=== PATIENT | female | born 1960 | race African-American/Black ===

== ENCOUNTER 2016-07-29 14:38 | Inpatient (IN) | payer MEDICARE, OTHER ==
--- NOTE | ~2016-07-29 | ECH ---
Echocardiogram [address] [place]. [address] NAME: NANDO WHEELER : 64 STATUS : ADM IN [facility]#: [id number] AGE: 56 ADM/REG DATE : 07/29/16 MR#: [id number] REPORT SERV DATE: 08/01/16 DICTATED BY: ANNETTE ABRAHAM JR. DATE: 07/30/16 REPORT STATUS : Draft TRANSCRIBED BY: AVNI DATE: 07/30/16 REFERRING PHYSICIANS: Tatiana Zamora M.D. and Arminda Webb D.O. TECH: Lloyd Rosales is the RDCS. INDICATIONS: Ischemic cardiomyopathy, chest pain, NSTEMI. 2-D INTERPRETATION: M-mode and 2-dimensional echocardiography were performed. The left atrium was dilated at 4.4 cm compared to an aortic root diameter of 2.5 cm. The left ventricle was dilated at 5.8 cm in end-diastole and 4.7 cm in end-systole. Overall, there appeared to be moderate reduction of left ventricular systolic function with moderate anterolateral and inferior posterolateral hypokinesis with ejection fraction of 35%. DEFINITY contrast imaging agent was utilized to enhance endocardial borders, aortic valve was trileaflet and sclerotic. The mitral valve appeared to be mildly sclerotic with mitral annular calcification. Remaining cardiac valves appeared to be structurally normal. No obvious pericardial or pleural effusion could be seen. No intracardiac mass could be identified. DOPPLER/COLOR FLOW: Conventional and Doppler color flow imaging were performed. Mitral inflow patterns were acceptable for the patient's age. There was mild mitral insufficiency. There was tricuspid insufficiency. Peak right ventricular systolic pressure of 60 mmHg. Peak gradient across the aortic valve measured 15 mmHg, mean gradient 6 mmHg yielding an aortic valve area of 1.3 cm square with continuity equation. There was no aortic insufficiency. CONCLUSION: MODERATE REDUCTION OF LEFT VENTRICULAR SYSTOLIC FUNCTION WITH REGIONAL WALL MOTION ABNORMALITY. MITRAL VALVE SCLEROSIS WITH MITRAL ANNULAR CALCIFICATION AND MILD MITRAL INSUFFICIENCY. AORTIC VALVE SCLEROSIS WITH MILD STENOSIS. TRICUSPID INSUFFICIENCY WITH AT LEAST MODERATE PULMONARY HYPERTENSION. /AVNI Annette Abraham Jr., M.D. / [id number] CC: Grant Rogers M.D.
--- NOTE | ~2016-07-29 | HP ---
History And Physical [address] [place]. [address] NAME: NANDO WHEELER : 64 STATUS : ADM IN [facility]#: [id number] AGE: 55 ADM/REG DATE : 07/29/16 MR#: [id number] REPORT SERV DATE: 07/29/16 DICTATED BY: ROMEO ESPINOZA DATE: 07/29/16 REPORT STATUS : Draft TRANSCRIBED BY: MODL DATE: 07/29/16 DATE OF ADMISSION: 07/29/2016 HISTORY AND PHYSICAL: Ms Wheeler is a 55-year-old black female, patient of Dr. Tatiana Zamora, on home peritoneal dialysis, longstanding history of diabetes, and hypertension, recently diagnosed with calciphylaxis, [facility] by Dr. Raul Silva, admitted now with with two- to three-week history of weakness, drop in hematocrit, dark stools, and today, at work, just could not stay at work. She was too weak and was sent to the emergency room where she was found have a hemoglobin of 7.1. Heart rate was in the 30s with potassium above 6. She recently was switched from Coumadin to Eliquis because of her calciphylaxis lesions. Dr. Webb agreed to this after discussing with Dr. Zamora. She has been on Coumadin for atrial fib for some time. Back in September of last year, had two stents placed at [facility] for ischemic cardiomyopathy. Her diabetes is quite extensive with end-stage renal disease, Charcot joints, from peripheral neuropathy with amputated right toe, chronic hypertension although currently she is hypotensive bradycardic and anemic. ALLERGIES: SHE IS ALLERGIC TO SULFA. MEDICATIONS: Her home medications otherwise are listed as hydralazine, aspirin, calcitriol, Chantix, Coreg, doxycycline, Eliquis, Fosrenol, Kenalog cream, Lasix, Lipitor, LiquaCel, nitroglycerin, NovoLog insulin, Plavix, potassium, prednisone, eye drops, Prilosec, Pro- Stat, and Zetia. SOCIAL HISTORY: Lives alone. 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 Rare alcohol intake. No drugs. FAMILY HISTORY: Positive for hypertension, diabetes, but no chronic kidney disease. REVIEW OF SYSTEMS: Weak for the last several weeks and [facility] this to [facility]. They were to get a stool sample because she stated that her stools were getting darker. Hemoglobin dropped from 10 to 8.8, but she was still able to get up and about take care of herself, go to work every day until today when she was profoundly weak, hemoglobins had dropped further. She was quite bradycardic. PHYSICAL EXAMINATION: VITAL SIGNS: Initially, her heart rate is in the 30s, went up to the 50s, blood pressure was in the 89/40 range initially. Currently, her heart rate is 61, with a blood pressure 158/62 after 2 units of blood, insulin, glucose, calcium, and bicarbonate. She is afebrile. Respirations are normal. GENERAL: She is alert, cooperative, conversant, and oriented x3. Saturating 100% on 2 L by nasal cannula. HEENT: Unremarkable except for pale tongue, pale lips, and she in color. LUNGS: Clear. CARDIOVASCULAR: Bradycardic, but otherwise no rub. History And Physical [address] [address] NAME: NANDO WHEELER : 64 STATUS : ADM IN [facility]#: [id number] AGE: 55 ADM/REG DATE : 07/29/16 MR#: [id number] REPORT SERV DATE: 07/29/16 DICTATED BY: ROMEO ESPINOZA DATE: 07/29/16 REPORT STATUS : Draft TRANSCRIBED BY: AVNI DATE: 07/29/16 ABDOMEN: Soft, benign. Bowel sounds are present. EXTREMITIES: No edema. No AV fistula access. She does have a PD catheter in her abdomen. NEUROLOGIC: Weak diffusely, but nonfocal. Cranial nerves II through XII intact. Oriented x3. Good historian. LABORATORY DATA: Shows a white count of 5.6, hemoglobin 7, hematocrit 21, platelet count 174,000. INR 1.4. Troponin 2.05. Lactic acid 4.5, with a sodium 139, potassium 6.0, chloride 104, CO2 of 21, BUN of 88, creatinine 10.1. Blood sugar 247 initially and she has had insulin glucose since then. EKG showed no T-waves initially. Heart rate in the 30s. Repeat EKG shows a heart rate of 61. P waves have returned. Flipped T-waves laterally. Chest x-ray is clear except for a large heart. ASSESSMENT: 1. Bradycardia, thought to be medication induced versus inferior myocardial infarction versus hyperkalemia. Has been treated for the hyperkalemia and Cardiology consulted for the bradycardia and positive troponin. She is going to receive D50, insulin, IV calcium, and bicarbonate therapy. We have avoided Kayexalate as she has probable gastrointestinal bleed and may need endoscopy. 2. End-stage renal disease, on peritoneal dialysis. She has missed two peritoneal dialysis treatment in the last month, both from last week. 3. Coronary artery disease, history of drug-eluting stents after ischemic cardiomyopathy documented in September of last year. Both at [facility]. Ejection fraction at that time was 50%, but had dilated cardiomyopathy. Dr. Webb had took care over then and has followed her INR until last month when she was switched over to Eliquis for atrial fibrillation and calciphylaxis lesion. She has positive troponins now. 4. Diabetes mellitus type 2. 5. Serial drop in hemoglobin as an outpatient thought to be due to gastrointestinal bleeding. Her stools have turned dark and she is guaiac positive here and no history of ulcers, has seen Dr. Luis in the past. No history of nonsteroidal antiinflammatory agents. 6. Hypertension. Currently, hypotensive. I will hold blood pressure medications. 7. Calciphylaxis. Dr. Raul Silva follows for left leg ulcer which is dry and benign appearing currently. 8. Atrial fibrillation, on Coumadin. INR of 2.2 in June, but now on Eliquis. Today's INR is 1.4. She is currently in sinus rhythm and bradycardic. 9. Weakness secondary to hypotension, anemia, and cannot rule out other etiologies. Does not appear septic. PLAN: Has received 2 units of packed red blood cells. Has been treated for hyperkalemia. We will move to ICU, consult GI and Cardiology. I have discussed the case with Dr. Webb, and we will proceed with peritoneal dialysis tonight. History And Physical [address] [place]. [address] NAME: NANDO WHEELER : 64 STATUS : ADM IN [facility]#: [id number] AGE: 55 ADM/REG DATE : 07/29/16 MR#: [id number] REPORT SERV DATE: 07/29/16 DICTATED BY: ROMEO ESPINOZA DATE: 07/29/16 REPORT STATUS : Draft TRANSCRIBED BY: AVNI DATE: 07/29/16 IVET/AVNI Romeo Espinoza M.D. / [id number] CC: Romeo Espinoza M.D.
--- NOTE | ~2016-07-29 | CN ---
Consultation Report [facility] [address] [place]. [address] NAME: NANDO WHEELER : 64 STATUS : ADM IN PAT#: [id number] AGE: 56 ADM/REG DATE : 07/29/16 MR#: [id number] REPORT SERV DATE: 08/02/16 DICTATED BY: GEE SILVA III DATE: 08/01/16 REPORT STATUS : Draft TRANSCRIBED BY: MODSophia DATE: 08/01/16 CONSULTATION NOTE. DATE OF CONSULTATION: 08/01/2016 HISTORY OF PRESENT ILLNESS: Patient is a 56-year-old Afro-Grenadian female with a several-day history of upper GI bleeding that necessitated hospitalization. She has had four units of blood given in total and had an EGD done by Dr. Luis today that revealed a bleeding site from her ampulla of Vater which was controlled by a clip placement. A colonoscopy was attempted, but abandoned due to poor prep. The patient has complained of severe heartburn for about six weeks or so. The patient has a history of severe pain in the left calf which has been managed by this physician with diagnosis of calciphylaxis in the left calf that is better controlled now, but still there is a residual dry eschar and ulceration. The patient seems to be responding to therapy. PAST MEDICAL HISTORY: She still uses half a pack of cigarettes a day. She has atrial fibrillation, on Eliquis. She has history of hypertension, high cholesterol, and murmur, followed by Dr. Webb. She has had a partial amputation of the right first metatarsal. She had peritoneal dialysis, hysterectomy, breast augmentation. She is followed by Dr. Tatiana Zamora. History of diabetes mellitus with average blood sugars, fasting 110. She has had a partial thyroidectomy in the past. History of depression. PAST SURGICAL HISTORY: C-sections, fibroidectomy, hysterectomy, laser surgery to the eye, partial thyroidectomy, breast augmentation, partial amputation of right toe 05/2015. SOCIAL HISTORY: She lives alone. Works at [employer] and is cooperative. IMPRESSION: 1. She has upper GI bleed complicated by Eliquis and her history of heartburn, controlled by clipping, but certainly further intervention may be necessary including an arteriogram of the gastroduodenal artery with embolectomy if bleeding resumes. Also, the use of her Eliquis may have to be altered. Upper GI with an ampulla controlled, further intervention with surgery as a last resort. 1. Chronic heartburn of unclear etiology. Certainly, on EGD there was no evidence of ulceration. Followup gallbladder testing would be recommended. She has end-stage renal disease, on peritoneal dialysis. 2. She has a history of left calf pain related to calciphylaxis which is resolving with two sessions of injections of sodium thiosulfate. Calciphylaxis of left leg, which is resolving, dry ulceration, improving which will be ordered for local care. 1. History of diabetes mellitus type 2, being treated with medication. 2. Organic heart disease with atrial fibrillation, on Eliquis with a history of stent in 09/2015. Consultation Report [address] [place]. [address] NAME: NANDO WHEELER : 64 STATUS : ADM IN PAT#: [id number] AGE: 56 ADM/REG DATE : 07/29/16 MR#: [id number] REPORT SERV DATE: 08/02/16 DICTATED BY: GEE SILVA III DATE: 08/01/16 REPORT STATUS : Draft TRANSCRIBED BY: AVNI DATE: 08/01/16 RB/AVNI Gee Silva III, M.D. / [id number] CC: Grant Cotto MD
--- NOTE | ~2016-07-29 | DS ---
Discharge Summary [facility] [address] [place]. [address] NAME: NANDO WHEELER : 64 STATUS : DIS IN PAT#: [id number] AGE: 56 ADM/REG DATE : 07/29/16 MR#: [id number] REPORT SERV DATE: 08/16/16 DICTATED BY: MORA MIX DATE: 08/15/16 REPORT STATUS : Draft TRANSCRIBED BY: AVNI DATE: 08/15/16 Data Collection from hospitalization DISCHARGE DIAGNOSES: 1. End-stage renal disease-peritoneal dialysis. 2. Acute blood loss anemia, status post GI bleed-postop day 2, EGD plus ampullary clipping and packed red blood cell transfusions. 3. Ejection fraction 35%. 4. Positive troponin. 5. RVSP 60. 6. ASCVD, status post percutaneous coronary intervention. 7. Atrial fibrillation. 8. Left lower extremity calciphylaxis. 9. History of chronic hypotension. 10.Diabetes. 11.Charcot joint. 12.Peripheral neuropathy. 13.Hypotension. 14.Bradycardia. 15.Anemia. 16.Depression. CONSULTATIONS: 1. Dr. Yaya Silva III. 2. Dr. Flash Roach. 3. Dr. Junie Abraham. PROCEDURES: 1. EGD to small bowel, a clip, and colonoscopy to the distal transverse colon-aborted 08/01/2016. 2. Venous Doppler ultrasound of the left upper extremity 08/01/2016. DISCHARGE MEDICATIONS: Aspirin 81 mg daily, Lipitor 40 mg at bedtime, Rocaltrol 1 mcg daily, Coreg 12.5 mg twice a day, Zetia 10 mg daily, Lasix 80 mg twice a day, Apresoline 25 mg three times a day, NovoLog injection insulin as instructed, Fosrenol 1000 mg with meals, NitroQuick 0.4 mg sublingually as needed, Protonix 40 mg twice a day, Klor-Con 20 mEq daily, Carafate 2 g before meals and at bedtime, Chantix 0.5 mg daily. She was instructed not to continue Eliquis or Prilosec. CONDITION ON DISCHARGE: Stable. DISPOSITION: The patient was discharged home on a renal, low-sodium diet with activities as instructed. She would follow up with Dr. Arminda Webb as instructed. She would follow up with Dr. Yaya Silva III, 08/18/2016. She was to schedule an appointment with [facility] following discharge. HOSPITAL COURSE: This is a 56-year-old female who is on home peritoneal dialysis. She has a longstanding history of diabetes and hypertension and was recently diagnosed with Discharge Summary [address]. [address] NAME: NANDO WHEELER : 64 STATUS : DIS IN PAT#: [id number] AGE: 56 ADM/REG DATE : 07/29/16 MR#: [id number] REPORT SERV DATE: 08/16/16 DICTATED BY: MORA MIX DATE: 08/15/16 REPORT STATUS : Draft TRANSCRIBED BY: AVNI DATE: 08/15/16 calciphylaxis. She [facility] by Dr. Yaya Silva III. She was admitted at this time with a two- to three-week history of weakness, drop in hematocrit, dark stools, and while at work on the day of this admission, she could not stay there. She was too weak and was sent to the emergency room. She was found to have a hemoglobin of 7.1. Her heart rate was in the 30s, and potassium was above 6. She was switched from Coumadin to Eliquis recently because of her calciphylaxis lesions. Dr. Webb agreed to this after discussing it with Dr. Zamora. She had been on Coumadin for atrial fibrillation for sometime. In September of last year, she had two stents placed at [facility] for ischemic cardiomyopathy. Her diabetes is quite extensive with end-stage renal disease, Charcot joints from peripheral neuropathy with amputated right toe, hypertension although currently she was hypotensive, bradycardic, and anemic. She was admitted to the hospital at this time for further evaluation and treatment. Upon admission, creatinine level was 10.1. EKG showed no T-waves initially. Repeat EKG showed a heart rate of 61. Her initial EKG showed heart rates in the 30s. P-waves returned. There were flipped T-waves laterally. Chest x-ray was clear except for a large heart. Bradycardia was felt to be medication induced. She had been treated for the hyperkalemia, and Cardiology consulted for bradycardia and positive troponin. She was going to receive D50 insulin, IV calcium, and bicarbonate therapy. We would avoid Kayexalate if she does have probable GI bleed and may need to undergo endoscopy. She had missed 2 peritoneal dialysis treatments in the past month. Both were from the week prior to admission. She had positive troponins at this time. She has no history of nonsteroidal anti-inflammatory agents. Blood pressure medication was going to be held. She was currently hypotensive. Dr. Yaya Silva III, followed her left leg ulcer which was dry and benign appearing currently. She does have calciphylaxis. INR level was now 1.4. She was currently in a sinus rhythm and bradycardic. She received two units of packed red blood cells. She was treated for hyperkalemia. She was moved to the ICU. She was seen by Dr. Junie Abraham regarding elevated troponin, anemia, arrhythmia, and hyperkalemia. Her potassium was noted to be 7 mg/dL. She had been treated appropriately and was hydrated with resolution of her bradycardia. Currently, she was normotensive in a sinus rhythm with no overt complaints of chest pain or dyspnea but did feel unwell and complained of vague, diffuse abdominal pain. Hydration was going to be continued. A GI consult was requested. Warfarin was on hold. Plavix may also be held. This would be resumed once the patient is able. The following day, the patient was seen by Dr. Flash Roach regarding severe anemia. She had been feeling weak and had been on Coumadin. She had noticed a small amount of rectal bleeding. She had been changed over to Eliquis for about two weeks. She had been found to be severely anemic in the [facility]. Creatinine level was 9.93, potassium was now 4.5. It was felt that she would need further GI workup with upper endoscopy and colonoscopy. Echocardiogram was also performed. Peritoneal dialysis therapy was performed on the . She had no new complaints. She had no GI discomfort at this time and no chest pain. Eliquis was on hold. She had no shortness of breath. She did have some constipation but no melena. Protonix infusion was being performed. She had no further GI bleed. On 08/01/2016, she was in no acute distress. O2 saturation was 99% on room air. Supportive care continued. She was seen by Dr. Yaya Silva III. The patient had received four units of blood. She had undergone an EGD earlier in the day. That revealed a bleeding site from her ampulla of Vater which was controlled by clip placement. Colonoscopy was attempted Discharge Summary [address] [place]. [address] NAME: NANDO WHEELER : 64 STATUS : DIS IN PAT#: [id number] AGE: 56 ADM/REG DATE : 07/29/16 MR#: [id number] REPORT SERV DATE: 08/16/16 DICTATED BY: MORA MIX DATE: 08/15/16 REPORT STATUS : Draft TRANSCRIBED BY: MODSophia DATE: 08/15/16 but abandoned due to poor prep. The patient complained of severe heartburn for about six weeks. The patient has a history of severe pain in the left calf which was managed by Dr. Silva with a diagnosis of calciphylaxis in the left calf that was better controlled at this time. There was residual dry eschar and ulceration. She seemed to be responding to therapy. It was felt that further intervention may be necessary including an arteriogram of the gastroduodenal artery with embolectomy if the bleeding resumed. It was felt that the use of her Eliquis may have to be altered. She has chronic heartburn of unclear etiology. On EGD, there was no evidence of ulceration. Followup gallbladder testing was recommended. She has a history of left calf pain related to calciphylaxis which was resolving with 2 sessions of injections of sodium thiosulfate. The patient has calciphylaxis of the left leg which was resolving and dry ulceration which was improving. Local care was ordered. The patient refused hemodialysis therapy that evening. She said she does not feel well. Venous Doppler ultrasound of the left upper extremity was performed. She did have some left upper extremity swelling. She was found to have thrombus in the distal cephalic vein. The internal jugular vein, subclavian vein, axillary vein, brachial vein, and basilic vein were patent. She had no new complaints. She denied any melena. She had no abdominal pain. She was tolerating clear liquids. Discharge planning was performed. Her positive troponin was felt to be "demand ischemia." On 08/03/2016, she was going to be placed on aspirin only for anticoagulation. O2 saturation was 96% on room air. Protonix was changed to oral dosing. Discharge instructions were given. Due to her improved and stable condition, she was discharged home with the above-stated instructions. Information collected by: Alvina Recinos I submit the above information as my discharge summary. JAZMIN/AVNI Mora Mix M.D. / [id number] CC: Grant Cotto III, M.D. Henry Paik, M.D. Dannis Hood Jr., M.D.
--- NOTE | ~2016-07-29 | CN ---
Consultation Report [facility] [address] [place]. [address] NAME: NANDO WHEELER : 64 STATUS : ADM IN PAT#: [id number] AGE: 55 ADM/REG DATE : 07/29/16 MR#: [id number] REPORT SERV DATE: 07/30/16 DICTATED BY: ANNETTE ABRAHAM JR. DATE: 07/29/16 REPORT STATUS : Draft TRANSCRIBED BY: AVNI DATE: 07/29/16 CONSULTATION DATE OF CONSULTATION: INDICATION FOR CONSULTATION: Elevated troponin, anemia, arrhythmia, hyperkalemia. HISTORY OF PRESENT ILLNESS: The patient is a 55-year-old female with history of end-stage renal disease, dialysis dependent, diabetes, and hypertension, who was feeling unwell earlier today. She had noted dark tarry stools and presented to the dialysis clinic, but could not get out of her automobile. She was approached by a bystander, who procured the nurses from the dialysis clinic, who then called EMS. On arrival, she was noted to be significantly hypotensive and bradycardic with a junctional rhythm. Potassium was noted to be 7 mg/dL. She was treated appropriately, hydrated with resolution of bradycardia. Currently, she is normotensive and in sinus rhythm with no overt complaint of chest pain, dyspnea, but feels unwell and complains of vague diffuse abdominal pain. REVIEW OF SYSTEMS: A 10-point review of systems otherwise is unremarkable. ALLERGIES: TO SULFA. MEDICATIONS: Have included warfarin sodium 7.5 mg as directed, p.r.n. sublingual nitroglycerin, Zetia, clopidogrel bisulfate 75 mg daily, hydralazine 10 mg b.i.d., furosemide 10 mg two tablets daily, atorvastatin 10 mg daily, carvedilol 12.5 mg p.o. b.i.d. She also relates that she has been taking potassium pills at home as well. PAST MEDICAL HISTORY: Notable for hyperkalemia; end-stage renal disease, on hemodialysis; diabetes; hypertension; and paroxysmal atrial fibrillation. PAST SURGICAL HISTORY: Notable for prior cardiac catheterization, partial thyroidectomy, prior PCI in the third obtuse marginal, and mid circumflex. SOCIAL HISTORY: Notable for current tobacco use approximately one-half pack per day. No ethanol or drug use. FAMILY HISTORY: Notable for hypertension and cancer. PHYSICAL EXAMINATION: VITAL SIGNS: Blood pressure is 142/55 mmHg, pulse is 62 and regular, respirations 14. The patient is afebrile. HEENT: Unremarkable. NECK: Supple without jugular venous distention. CARDIOVASCULAR SYSTEM: Regular rhythm. Questionable S3. No S4. PMI is laterally Consultation Report [facility] [id number] [place]. [address] NAME: NANDO WHEELER : 64 STATUS : ADM IN [facility]#: [id number] AGE: 55 ADM/REG DATE : 07/29/16 MR#: [id number] REPORT SERV DATE: 07/30/16 DICTATED BY: ANNETTE ABRAHAM JR. DATE: 07/29/16 REPORT STATUS : Draft TRANSCRIBED BY: AVNI DATE: 07/29/16 displaced. LUNGS: Clear. ABDOMEN: Soft, mildly tender without rebound or guarding. Bowel sounds are normal. EXTREMITIES: 1+ with no evidence of pedal edema. NEUROLOGIC: She is grossly intact. LABORATORIES: Include EKG notable for telemetry with sinus rhythm, nonspecific ST-T wave abnormality. A followup EKG from admission is pending. Followup serum laboratories are pending at this time. IMPRESSION: A 55-year-old female, obese with hypertension admitted with: 1. Acute hyperkalemia. 2. Gastrointestinal hemorrhage. 3. Elevated troponin, on admission noted to be 2 mg/dL likely demand ischemia induced. 4. Hyperkalemia, multifactorial. 5. History of diabetes mellitus. PLANS AND RECOMMENDATIONS: 1. Continue hydration as you are doing. 2. Gastroenterology consultation noted. 3. Warfarin, on hold. 4. May hold Plavix at this time as last angioplasty is recorded approximately 10 months ago. Would resume Plavix once the patient is stable if able. 5. Cardiac risk factor reduction. 6. Dr. Arminda Webb, her truck bench mechanic to return and assume care on Monday. PEGGY/AVNI Annette Abraham Jr., M.D. / [id number] CC: Grant Rogers N.P.
--- NOTE | ~2016-07-29 | CN ---
Consultation Report [facility] [address] [place]. [address] NAME: NANDO WHEELER : 64 STATUS : ADM IN [facility]#: [id number] AGE: 55 ADM/REG DATE : 07/29/16 MR#: [id number] REPORT SERV DATE: 07/30/16 DICTATED BY: FLASH SHERMAN DATE: 07/30/16 REPORT STATUS : Draft TRANSCRIBED BY: MODL DATE: 07/30/16 CONSULTATION DATE OF CONSULTATION: 07/30/2016 INDICATION: The patient with severe anemia. HISTORY OF PRESENT ILLNESS: This is a 55-year-old female on peritoneal dialysis, who has been feeling weak. The patient had been on Coumadin during which time she noted a small amount of rectal bleeding. About two weeks ago, she was changed over to Eliquis. About a week, the patient has been feeling very weak and tired. In dialysis clinic patient was noted to be severely anemic and was referred to the ER. Her potassium was 6, hemoglobin of 7.1, with dark stool. The patient was subsequently admitted for further GI workup. PAST MEDICAL HISTORY: Diabetes, hypertension, end-stage renal disease on peritoneal dialysis, and atrial fibrillation. MEDICATIONS: See MAY. ALLERGIES: SULFA. PHYSICAL EXAMINATION: VITAL SIGNS: Temperature is 99.6, blood pressure 120/59, and pulse of 58. HEENT: Normocephalic, atraumatic. Throat is clear. LUNGS: Clear. HEART: S1, S2 without murmurs, gallops, rubs. Abdomen: Normoactive bowel sounds, soft, nondistended, and nontender. EXTREMITIES: Negative for cyanosis, clubbing, or edema. LABORATORY STUDIES: Shows sodium 144, potassium 4.5, BUN 89, creatinine 9.93, albumin 2.5, white count of 5.6, H and H of 8.1 and 24.5, platelet count 174, and INR 1.4. IMPRESSION: The patient with severe anemia, symptomatic. She will need further gastrointestinal workup with upper endoscopy and colonoscopy on Monday. OLENA/AVNI Flash Sherman M.D. / [id number] CC: Consultation Report [address] [place]. [facility] [place]. [address] NAME: NANDO WHEELER : 64 STATUS : ADM IN PAT#: [id number] AGE: 55 ADM/REG DATE : 07/29/16 MR#: [id number] REPORT SERV DATE: 07/30/16 DICTATED BY: FLASH SHERMAN DATE: 07/30/16 REPORT STATUS : Draft TRANSCRIBED BY: MODL DATE: 07/30/16 Grant Rogers M.D.
[2016-07-29 14:01] LABS: BASOPHILS 0.5 %; BASOPHILS ABSOLUTE 0.03 10/3/uL (0.0-0.16); EOSINOPHILS 1.4 %; EOSINOPHILS ABSOLUTE 0.08 10/3/uL (0.0-0.53); ER CBC TAT 0 Hrs 05 Mins; HEMATOCRIT 21.8 % (36.0-48.0); HEMOGLOBIN 7.1 g/dL (12.0-16.0); IMMATURE GRANULOCYTES 0.5 %; IMMATURE GRANULOCYTES ABSOLUTE 0.03 10/3/uL (0.0-0.11); LYMPHOCYTES 25.8 %; LYMPHOCYTES ABSOLUTE 1.44 10/3/uL (0.67-4.30); MEAN CORPUS HGB CONC 32.6 g/dL (32.0-36.0); MEAN CORPUSCULAR HEMOGLOB 30.7 pg (26.0-34.0); MEAN CORPUSCULAR VOLUME 94.4 fL (80-100); MEAN PLATELET VOLUME 10.5 fL (9.2-13.0); MONOCYTES 6.5 %; MONOCYTES ABSOLUTE 0.36 10/3/uL (0.21-1.20); NEUTROPHILS 65.3 %; NEUTROPHILS ABSOLUTE 3.64 10/3/uL (2.02-8.40); RED CELL COUNT 2.31 10/6/uL (4.0-5.6); WHITE BLOOD CELLS 5.6 10/3/uL (4.5-10.5)
[2016-07-29 14:02] LABS: MANUAL DIFF NO %; PLATELET COUNT 174 10/3/uL (150-400)
[2016-07-29 14:07] LABS: INTERNATIONAL NORMAL RATI 1.4 UNITS (-); PARTIAL THROMBO TIME 29.2 SEC (22.5-37.2); PROTIME (NOT ORD) 17.4 SEC (12.0-14.5)
[2016-07-29 14:20] LABS: BUN (BLOOD UREA NITROGEN) 88 MG/DL (6-23); CALCIUM, SERUM 7.9 MG/DL (8.5-10.4); CHEST PAIN PROFILE TAT 0 Hrs 24 Mins; CHLORIDE, SERUM 104 MMOL/L (96-112); CO2 (CARBON DIOXIDE) 21 MMOL/L (24-34); GFR AFRICAN AMERICAN 5 ML/MIN (>=60); GFR NON AFRICAN AMERICAN 4 ML/MIN (>=60); GLUCOSE, SERUM 247 MG/DL (60-99); TROPONIN I 2.05 NG/ML (<0.05)
[2016-07-29 14:27] LABS: SODIUM, SERUM 139 MMOL/L (135-148)
[~2016-07-29 14:38] MED LIST: ADVIL PO; APRES25 PO; BACTROCR TOP; CEFAZ500 IM; COREG12 PO; COREG6 PO; CORTISPORIN OPH; COUMADIN7.5 MG PO; KLOR-CON M1010 MEQ PO; L80 PO; LIPITOR40 PO; NORCO1 TA1 PO; NOVLOGPUMP SC; PAX10 PO; PEPTO BISMOL UD30 ML PO; PHOSLO PO; PRILOSEC40 MG PO; ROCALTROL0.5 MCG PO; SENSIPAR30 M1 PO
[2016-07-29] MEDS ORDERED: ASAB PO (15:20)
[2016-07-29] MEDS ORDERED: APRES25 PO (15:20)
[2016-07-29] MEDS ORDERED: COREG12 PO (15:21)
[2016-07-29] MEDS ORDERED: CHANTIX0.5 PO (15:21)
[2016-07-29] MEDS ORDERED: ROCALTROL0.5 MCG PO (15:21)
[2016-07-29] MEDS ORDERED: NOVOLOG (15:22)
[2016-07-29] MEDS ORDERED: ELIQUIS 2.5 MG2.5 MG PO (15:22)
[2016-07-29] MEDS ORDERED: FOSRENOL1000 MG PO (15:22)
[2016-07-29] MEDS ORDERED: NITROQUICK0.4 MG SL (15:23)
[2016-07-29] MEDS ORDERED: LIPITOR40 PO (15:23)
[2016-07-29] MEDS ORDERED: L80 PO (15:23)
[2016-07-29] MEDS ORDERED: KLOR-CON M2020 MEQ PO (15:24)
[2016-07-29] MEDS ORDERED: ZETIA PO (15:24)
[2016-07-29] MEDS ORDERED: PRILOSEC40 MG PO (15:24)
[2016-07-29 15:33] LABS: ALBUMIN 2.6 G/DL (3.5-5.0); BUN (BLOOD UREA NITROGEN) 89 MG/DL (6-23); CALCIUM, SERUM 8.3 MG/DL (8.5-10.4); CHLORIDE, SERUM 109 MMOL/L (96-112); CO2 (CARBON DIOXIDE) 20 MMOL/L (24-34); CREATININE 9.96 MG/DL (0.55-1.02); GFR AFRICAN AMERICAN 5 ML/MIN (>=60); GFR NON AFRICAN AMERICAN 4 ML/MIN (>=60); POTASSIUM, SERUM 5.4 MMOL/L (3.5-5.3); SODIUM, SERUM 142 MMOL/L (135-148)
[2016-07-29 15:35] LABS: GLUCOSE, SERUM 182 MG/DL (60-99); PHOSPHORUS, SERUM 5.5 MG/DL (2.5-4.5)
[2016-07-29 20:47] LABS: HEMATOCRIT 28.9 % (36.0-48.0); HEMOGLOBIN 9.5 g/dL (12.0-16.0)
[2016-07-29 21:03] LABS: BUN (BLOOD UREA NITROGEN) 94 MG/DL (6-23); CALCIUM, SERUM 8.2 MG/DL (8.5-10.4); CHLORIDE, SERUM 109 MMOL/L (96-112); CO2 (CARBON DIOXIDE) 21 MMOL/L (24-34); CPK (IF ELEVATED MB BANDS) 323 U/L (0-200); GFR AFRICAN AMERICAN 5 ML/MIN (>=60); GFR NON AFRICAN AMERICAN 4 ML/MIN (>=60); GLUCOSE, SERUM 94 MG/DL (60-99); PHOSPHORUS, SERUM 4.3 MG/DL (2.5-4.5); POTASSIUM, SERUM 5.4 MMOL/L (3.5-5.3); SODIUM, SERUM 142 MMOL/L (135-148); TROPONIN I 7.17 NG/ML (<0.05)
[2016-07-29 21:18] LABS: CK-MB 11.9 NG/ML
[2016-07-29 21:19] LABS: CKMB INDEX (NOT ORD) 3.7
[2016-07-30 00:44] LABS: BD FL SOURCE (NOT ORD) PERIOTNEAL; BF TOTAL CELL CT (NOT ORD 259 /MM3
[2016-07-30 00:45] LABS: BODY FLUID RBC (NOT ORD) < 1000 /MM3
[2016-07-30 00:49] LABS: BD FL LYMPH (NOT ORD) 72 %; BF BASO (NOT OF) 0 %; BF LARGE MONONUCLEAR 18 %; BODY FLUID EOS (NOT ORD) 0 %; BODY FLUID SEG (NOT ORD) 10 %
[2016-07-30 02:22] LABS: HEMOGLOBIN 8.3 g/dL (12.0-16.0)
[2016-07-30 02:23] LABS: HEMATOCRIT 25.1 % (36.0-48.0)
[2016-07-30 02:34] LABS: ALBUMIN 2.7 G/DL (3.5-5.0); BUN (BLOOD UREA NITROGEN) 91 MG/DL (6-23); CALCIUM, SERUM 8.1 MG/DL (8.5-10.4); CHLORIDE, SERUM 111 MMOL/L (96-112); CO2 (CARBON DIOXIDE) 23 MMOL/L (24-34); CPK (IF ELEVATED MB BANDS) 317 U/L (0-200); GFR AFRICAN AMERICAN 4 ML/MIN (>=60); GFR NON AFRICAN AMERICAN 4 ML/MIN (>=60); GLUCOSE, SERUM 114 MG/DL (60-99); PHOSPHORUS, SERUM 3.9 MG/DL (2.5-4.5); POTASSIUM, SERUM 4.5 MMOL/L (3.5-5.3); SODIUM, SERUM 146 MMOL/L (135-148)
[2016-07-30 03:25] LABS: CK-MB 11.2 NG/ML; CKMB INDEX (NOT ORD) 3.5
[2016-07-30 07:57] LABS: HEMATOCRIT 24.5 % (36.0-48.0); HEMOGLOBIN 8.1 g/dL (12.0-16.0)
[2016-07-30 08:13] LABS: ALBUMIN 2.5 G/DL (3.5-5.0); BUN (BLOOD UREA NITROGEN) 89 MG/DL (6-23); CALCIUM, SERUM 8.3 MG/DL (8.5-10.4); CHLORIDE, SERUM 110 MMOL/L (96-112); CO2 (CARBON DIOXIDE) 23 MMOL/L (24-34); CREATININE 9.93 MG/DL (0.55-1.02); GFR AFRICAN AMERICAN 5 ML/MIN (>=60); GFR NON AFRICAN AMERICAN 4 ML/MIN (>=60); PHOSPHORUS, SERUM 3.9 MG/DL (2.5-4.5); POTASSIUM, SERUM 4.5 MMOL/L (3.5-5.3); SODIUM, SERUM 144 MMOL/L (135-148)
[2016-07-30 08:15] LABS: GLUCOSE, SERUM 167 MG/DL (60-99)
[2016-07-30 14:09] LABS: HEMOGLOBIN 8.3 g/dL (12.0-16.0)
[2016-07-30 20:21] LABS: HEMATOCRIT 26.2 % (36.0-48.0); HEMOGLOBIN 8.5 g/dL (12.0-16.0)
[2016-07-31 02:25] LABS: BASOPHILS 0.3 %; BASOPHILS ABSOLUTE 0.02 10/3/uL (0.0-0.16); EOSINOPHILS 2.5 %; EOSINOPHILS ABSOLUTE 0.17 10/3/uL (0.0-0.53); IMMATURE GRANULOCYTES 0.4 %; IMMATURE GRANULOCYTES ABSOLUTE 0.03 10/3/uL (0.0-0.11); LYMPHOCYTES 19.8 %; LYMPHOCYTES ABSOLUTE 1.34 10/3/uL (0.67-4.30); MEAN CORPUSCULAR HEMOGLOB 29.6 pg (26.0-34.0); MEAN CORPUSCULAR VOLUME 92.6 fL (80-100); MEAN PLATELET VOLUME 10.1 fL (9.2-13.0); MONOCYTES 7.7 %; MONOCYTES ABSOLUTE 0.52 10/3/uL (0.21-1.20); NEUTROPHILS 69.3 %; NEUTROPHILS ABSOLUTE 4.69 10/3/uL (2.02-8.40); PLATELET COUNT 194 10/3/uL (150-400); RBC DISTRIBUTION WIDTH 18.8 % (12.0-16.0); WHITE BLOOD CELLS 6.8 10/3/uL (4.5-10.5)
[2016-07-31 02:31] LABS: MANUAL DIFF NO %
[2016-07-31 02:42] LABS: ALBUMIN 2.6 G/DL (3.5-5.0); BUN (BLOOD UREA NITROGEN) 90 MG/DL (6-23); CALCIUM, SERUM 8.1 MG/DL (8.5-10.4); CHLORIDE, SERUM 107 MMOL/L (96-112); CO2 (CARBON DIOXIDE) 22 MMOL/L (24-34); GFR AFRICAN AMERICAN 4 ML/MIN (>=60); GFR NON AFRICAN AMERICAN 4 ML/MIN (>=60); PHOSPHORUS, SERUM 3.5 MG/DL (2.5-4.5); POTASSIUM, SERUM 4.2 MMOL/L (3.5-5.3); SODIUM, SERUM 142 MMOL/L (135-148)
[2016-07-31 02:45] LABS: GLUCOSE, SERUM 243 MG/DL (60-99)
[2016-08-01 06:04] LABS: BASOPHILS 0.4 %; BASOPHILS ABSOLUTE 0.02 10/3/uL (0.0-0.16); EOSINOPHILS 2.4 %; EOSINOPHILS ABSOLUTE 0.13 10/3/uL (0.0-0.53); IMMATURE GRANULOCYTES 0.2 %; IMMATURE GRANULOCYTES ABSOLUTE 0.01 10/3/uL (0.0-0.11); LYMPHOCYTES 20.5 %; LYMPHOCYTES ABSOLUTE 1.13 10/3/uL (0.67-4.30); MEAN CORPUS HGB CONC 32.5 g/dL (32.0-36.0); MEAN CORPUSCULAR VOLUME 92.1 fL (80-100); MONOCYTES 10.3 %; MONOCYTES ABSOLUTE 0.57 10/3/uL (0.21-1.20); NEUTROPHILS 66.2 %; NEUTROPHILS ABSOLUTE 3.65 10/3/uL (2.02-8.40); PLATELET COUNT 177 10/3/uL (150-400); RBC DISTRIBUTION WIDTH 18.2 % (12.0-16.0); RED CELL COUNT 2.27 10/6/uL (4.0-5.6); WHITE BLOOD CELLS 5.5 10/3/uL (4.5-10.5)
[2016-08-01 06:08] LABS: HEMATOCRIT 20.9 % (36.0-48.0); HEMOGLOBIN 6.8 g/dL (12.0-16.0)
[2016-08-01 06:09] LABS: MANUAL DIFF NO %
[2016-08-01 06:23] LABS: ALBUMIN 2.3 G/DL (3.5-5.0); CALCIUM, SERUM 8.2 MG/DL (8.5-10.4); CHLORIDE, SERUM 107 MMOL/L (96-112); GFR AFRICAN AMERICAN 5 ML/MIN (>=60); GFR NON AFRICAN AMERICAN 4 ML/MIN (>=60); GLUCOSE, SERUM 233 MG/DL (60-99); PHOSPHORUS, SERUM 4.1 MG/DL (2.5-4.5); POTASSIUM, SERUM 3.7 MMOL/L (3.5-5.3); SODIUM, SERUM 145 MMOL/L (135-148)
[2016-08-01 06:25] LABS: BUN (BLOOD UREA NITROGEN) 78 MG/DL (6-23); CO2 (CARBON DIOXIDE) 27 MMOL/L (24-34); CREATININE 9.58 MG/DL (0.55-1.02)
[2016-08-02 05:19] LABS: ALBUMIN 2.5 G/DL (3.5-5.0); CALCIUM, SERUM 8.5 MG/DL (8.5-10.4); CHLORIDE, SERUM 106 MMOL/L (96-112); CREATININE 9.74 MG/DL (0.55-1.02); GFR AFRICAN AMERICAN 5 ML/MIN (>=60); GFR NON AFRICAN AMERICAN 4 ML/MIN (>=60); PHOSPHORUS, SERUM 4.1 MG/DL (2.5-4.5); POTASSIUM, SERUM 3.9 MMOL/L (3.5-5.3); SODIUM, SERUM 144 MMOL/L (135-148)
[2016-08-02 05:22] LABS: BASOPHILS 0.4 %; BASOPHILS ABSOLUTE 0.03 10/3/uL (0.0-0.16); EOSINOPHILS ABSOLUTE 0.14 10/3/uL (0.0-0.53); IMMATURE GRANULOCYTES 0.1 %; IMMATURE GRANULOCYTES ABSOLUTE 0.01 10/3/uL (0.0-0.11); LYMPHOCYTES ABSOLUTE 1.45 10/3/uL (0.67-4.30); MEAN CORPUS HGB CONC 32.6 g/dL (32.0-36.0); MEAN CORPUSCULAR HEMOGLOB 28.8 pg (26.0-34.0); MEAN PLATELET VOLUME 10.3 fL (9.2-13.0); MONOCYTES 7.7 %; MONOCYTES ABSOLUTE 0.53 10/3/uL (0.21-1.20); NEUTROPHILS 68.8 %; NEUTROPHILS ABSOLUTE 4.76 10/3/uL (2.02-8.40); PLATELET COUNT 170 10/3/uL (150-400); RBC DISTRIBUTION WIDTH 19.2 % (12.0-16.0); WHITE BLOOD CELLS 6.9 10/3/uL (4.5-10.5)
[2016-08-02 05:27] LABS: BUN (BLOOD UREA NITROGEN) 82 MG/DL (6-23); CO2 (CARBON DIOXIDE) 21 MMOL/L (24-34); GLUCOSE, SERUM 182 MG/DL (60-99)
[2016-08-02 05:35] LABS: HEMATOCRIT 26.7 % (36.0-48.0); HEMOGLOBIN 8.7 g/dL (12.0-16.0); MANUAL DIFF NO %; MEAN CORPUSCULAR VOLUME 88.4 fL (80-100); RED CELL COUNT 3.02 10/6/uL (4.0-5.6)
[2016-08-03 05:26] LABS: BASOPHILS 0.4 %; BASOPHILS ABSOLUTE 0.03 10/3/uL (0.0-0.16); EOSINOPHILS ABSOLUTE 0.27 10/3/uL (0.0-0.53); HEMATOCRIT 25.1 % (36.0-48.0); HEMOGLOBIN 8.2 g/dL (12.0-16.0); IMMATURE GRANULOCYTES 0.1 %; IMMATURE GRANULOCYTES ABSOLUTE 0.01 10/3/uL (0.0-0.11); LYMPHOCYTES 21.3 %; LYMPHOCYTES ABSOLUTE 1.42 10/3/uL (0.67-4.30); MEAN CORPUS HGB CONC 32.7 g/dL (32.0-36.0); MEAN CORPUSCULAR HEMOGLOB 28.9 pg (26.0-34.0); MEAN CORPUSCULAR VOLUME 88.4 fL (80-100); MEAN PLATELET VOLUME 9.5 fL (9.2-13.0); MONOCYTES 7.5 %; NEUTROPHILS 66.7 %; NEUTROPHILS ABSOLUTE 4.44 10/3/uL (2.02-8.40); PLATELET COUNT 192 10/3/uL (150-400); RBC DISTRIBUTION WIDTH 18.7 % (12.0-16.0); RED CELL COUNT 2.84 10/6/uL (4.0-5.6); WHITE BLOOD CELLS 6.7 10/3/uL (4.5-10.5)
[2016-08-03 05:29] LABS: MANUAL DIFF NO %
[2016-08-03 05:51] LABS: ALBUMIN 2.6 G/DL (3.5-5.0); CALCIUM, SERUM 8.6 MG/DL (8.5-10.4); CHLORIDE, SERUM 105 MMOL/L (96-112); CO2 (CARBON DIOXIDE) 22 MMOL/L (24-34); CREATININE 9.53 MG/DL (0.55-1.02); GFR AFRICAN AMERICAN 5 ML/MIN (>=60); GFR NON AFRICAN AMERICAN 4 ML/MIN (>=60); PHOSPHORUS, SERUM 4.3 MG/DL (2.5-4.5); POTASSIUM, SERUM 3.7 MMOL/L (3.5-5.3); SODIUM, SERUM 141 MMOL/L (135-148)
[2016-08-03 05:52] LABS: BUN (BLOOD UREA NITROGEN) 71 MG/DL (6-23); GLUCOSE, SERUM 243 MG/DL (60-99)
[2016-08-03] MEDS ORDERED: PROTONIX PO (15:13)
[2016-08-03] MEDS ORDERED: SUCR PO (15:15)
== END 2016-08-03 15:46 | disposition home or self-care (01) | DRG 377 ==
LOC: ER 14:38 → CCU 15:49 → 6NO 07-31 17:02
PROVIDERS: Emergency Medicine; Internal Medicine Gastroenterology; Internal Medicine Nephrology
PROC: 30233N1 Transfusion of Nonautologous Red Blood Cells into Peripheral Vein, Percutaneous Approach (ICD-10-PCS; principal; 2016-07-29)
PROC: 3E1M39Z Irrigation of Peritoneal Cavity using Dialysate, Percutaneous Approach (ICD-10-PCS; 2016-07-31)
PROC: 0DJD8ZZ Inspection of Lower Intestinal Tract, Via Natural or Artificial Opening Endoscopic (ICD-10-PCS; 2016-08-01)
PROC: 0W3P8ZZ Control Bleeding in Gastrointestinal Tract, Via Natural or Artificial Opening Endoscopic (ICD-10-PCS; 2016-08-01 18:40)
DX: K92.2 Gastrointestinal hemorrhage, unspecified (principal); N18.6 End stage renal disease; I13.2 Hypertensive heart and chronic kidney disease with heart failure and with stage 5 chronic kidney disease, or end stage renal disease; I95.89 Other hypotension; I24.8 Other forms of acute ischemic heart disease; E11.22 Type 2 diabetes mellitus with diabetic chronic kidney disease; D62 Acute posthemorrhagic anemia; I50.22 Chronic systolic (congestive) heart failure; E11.40 Type 2 diabetes mellitus with diabetic neuropathy, unspecified; R00.1 Bradycardia, unspecified; E87.5 Hyperkalemia; Z99.2 Dependence on renal dialysis; I48.0 Paroxysmal atrial fibrillation; I25.5 Ischemic cardiomyopathy; I25.2 Old myocardial infarction; E11.610 Type 2 diabetes mellitus with diabetic neuropathic arthropathy; K59.00 Constipation, unspecified; I25.10 Atherosclerotic heart disease of native coronary artery without angina pectoris; E83.59 Other disorders of calcium metabolism; E89.0 Postprocedural hypothyroidism; F17.210 Nicotine dependence, cigarettes, uncomplicated; L94.2 Calcinosis cutis; Z89.421 Acquired absence of other right toe(s); Z79.82 Long term (current) use of aspirin; Z79.4 Long term (current) use of insulin; Z95.5 Presence of coronary angioplasty implant and graft; Z79.01 Long term (current) use of anticoagulants; Z79.02 Long term (current) use of antithrombotics/antiplatelets; Z90.710 Acquired absence of both cervix and uterus
CPT/HCPCS: 36415; 36430; 36600; 71010; 80048; 80069; 82330; 82550; 82553; 82803; 82947; 82962; 83605; 83735; 84132; 84295; 84484; 85014; 85018; 85025; 85610; 85730; 86850; 86900; 86901; 86920; 87070; 87205; 89051; 93005; 93971; 96374; 96375; 96376; 99291; A9270-GY; C8929; C9113; J0461; J0610; P9016; Q9957